=== PATIENT | female | born 1995 | race Caucasian/White ===

== ENCOUNTER 2020-08-26 08:55 | Outpatient (CLI) | payer MEDICAID ==
[2020-08-26 09:18] VITALS: BP 134/84
[2020-08-26 09:21] LABS: MICROSCOPIC INDICATED
[2020-08-26] MEDS ORDERED: NITR100C57 PO (09:58)
== END 2020-08-26 10:03 | disposition home or self-care (01) ==
LOC: LDOP 08:55
PROVIDERS: ATTEND Obstetrics & Gynecology
DX: O26.893 Other specified pregnancy related conditions, third trimester (principal); M54.9 Dorsalgia, unspecified; Z3A.38 38 weeks gestation of pregnancy
CPT/HCPCS: 59025; 81001; 87086

== ENCOUNTER 2020-09-04 06:09 | Inpatient (IN) | payer MEDICAID ==
[~2020-09-04] VITALS: Ht 160 cm; Wt 96.4 kg
[~2020-09-04 06:09] MED LIST: NITR100C57 PO
[2020-09-04] MEDS: LACTATED RINGERS 1,000 ML IV SCH (21:30)
[2020-09-04] MEDS ORDERED: ONDANSETRON 2MG/ML, 2ML IVPush PRN (22:00)
[2020-09-04] MEDS ORDERED: TERBUTALINE 1 MG/ML, 1ML IVPush PRN (22:00)
[2020-09-04] MEDS ORDERED: OXYTOCIN 30U/ 0.9% NaCL 500ML 500 ML IV PRN (22:00)
[2020-09-04] MEDS ORDERED: CALCIUM CARBONATE 500 MG TAB.CHEW PO PRN (22:00)
[2020-09-04] MEDS ORDERED: TERBUTALINE 1 MG/ML, 1ML SQ PRN (22:00)
[2020-09-04] MEDS ORDERED: MISOPROSTOL 25 MCG TABLET PO PRN (22:00)
[2020-09-04] MEDS ORDERED: FENTANYL PF 100 MCG/2ML IV PRN (22:00)
[2020-09-04] MEDS: D5%-LACTATED RINGERS 1,000 ML IV SCH (22:00)
[2020-09-04] MEDS ORDERED: OXYTOCIN 30U/ 0.9% NaCL 500ML 500 ML IV ONE (22:00)
[2020-09-04 22:14] LABS: BASOPHILS % (AUTO) 0 % (0-1); EOSINOPHILS % (AUTO) 2 % (1-7); LYMPHOCYTES % (AUTO) 21 % (22-44); MEAN CORPUSCULAR HEMOGLOBIN 29.6 pg (27.0-34.8); MEAN CORPUSCULAR HGB CONC 32.9 g/dL (32.4-35.8); MEAN PLATELET VOLUME 10.5 fL (7.4-10.4); MONOCYTES % (AUTO) 6 % (2-9); NEUTROPHILS % (AUTO) 71 % (42-75); PLATELET COUNT 256 x10^3/uL (130-400); RED BLOOD COUNT 3.89 x10^6/uL (3.82-5.3); RED CELL DISTRIBUTION WIDTH 15.7 % (9.6-15.2)
[2020-09-04 22:15] LABS: MD NO
[2020-09-05] MEDS ORDERED: LIDOCAINE 1%, 20ML ONE (02:01)
[2020-09-05] MEDS ORDERED: NEWBORN KIT ONE (02:01)
[2020-09-05] MEDS ORDERED: MISOPROSTOL 200 MCG TABLET ONE (02:01)
[2020-09-05] MEDS: LACTATED RINGERS 1,000 ML IV SCH ×5 (06:00→22:00)
[2020-09-05] MEDS: D5%-LACTATED RINGERS 1,000 ML IV SCH ×3 (06:00→22:00)
[2020-09-05] MEDS: FENTANYL PF 100 MCG/2ML IVPush PRN ×2 (09:31→10:35)
[2020-09-05] MEDS ORDERED: FENTANYL/BUPIV./NS/PF 250 ML EPIDCONT ONE (12:05)
[2020-09-05] MEDS: FENTANYL/BUPIV./NS/PF 250 ML EPIDCONT SCH (13:00)
[2020-09-05] MEDS ORDERED: NALOXONE 0.4 MG/ML, 1ML IVPush PRN (13:00)
[2020-09-05] MEDS ORDERED: EPHEDRINE 50 MG/ML, 1ML IVPush PRN (13:00)
[2020-09-05] MEDS ORDERED: LACTATED RINGERS 1,000 ML IVBOLUS PRN (13:00)
[2020-09-05 19:40] VITALS: BP 126/64
[2020-09-06] MEDS: LACTATED RINGERS 1,000 ML IV SCH ×6 (05:00→23:30)
[2020-09-06] MEDS: D5%-LACTATED RINGERS 1,000 ML IV SCH (06:00)
[2020-09-06] MEDS ORDERED: LIDOCAINE/MPF 2%-EPI 1:200K, 20 ML ONE ×2 (08:29→13:14)
[2020-09-06] MEDS: FENTANYL/BUPIV./NS/PF 250 ML EPIDCONT SCH (13:00)
[2020-09-06] MEDS ORDERED: SODIUM CITRATE/CITRIC ACID 15 ML UDC ONE (13:48)
[2020-09-06] MEDS ORDERED: METOCLOPRAMIDE 5 MG/ML, 2ML ONE (13:48)
[2020-09-06] MEDS ORDERED: DEXAMETHASONE 4 MG/ML, 1ML ONE (14:28)
[2020-09-06] MEDS ORDERED: ONDANSETRON 2MG/ML, 2ML ONE (14:28)
[2020-09-06] MEDS ORDERED: KETOROLAC 30 MG/1 ML ONE (14:28)
[2020-09-06] MEDS ORDERED: CEFAZOLIN 1,000 MG ONE (14:28)
[2020-09-06] MEDS ORDERED: OXYTOCIN 10 UNITS/ML, 1ML ONE (14:28)
[2020-09-06] MEDS ORDERED: WATER-INJECTION,STERILE 10 ML IV ONE (14:28)
[2020-09-06] MEDS ORDERED: PHENYLEPHRINE 10 MG/ML ONE (14:28)
[2020-09-06] MEDS ORDERED: morphine SULFATE/PF 0.5 MG/ML, 10ML ONE (14:30)
[2020-09-06] MEDS ORDERED: ONDANSETRON 2MG/ML, 2ML IV PRN (15:30)
[2020-09-06] MEDS ORDERED: MEPERIDINE/PF 50 MG/ML IM PRN (15:30)
[2020-09-06] MEDS ORDERED: IBUPROFEN 600 MG TABLET PO PRN (15:30)
[2020-09-06] MEDS ORDERED: MISOPROSTOL 200 MCG TABLET PR PRN (15:30)
[2020-09-06] MEDS ORDERED: MORPHINE SULFATE 4 MG/ML, 1ML IVPush PRN (15:30)
[2020-09-06] MEDS ORDERED: GLYCERIN ADULT SUPP PR PRN (15:30)
[2020-09-06] MEDS ORDERED: METOCLOPRAMIDE 5 MG/ML, 2ML IV PRN (15:30)
[2020-09-06] MEDS ORDERED: DIPH,PERTUSS(ACELL),TET VAC/PF NC IM-VACC PRN (15:30)
[2020-09-06] MEDS ORDERED: OXYcodone/APAP 5/325MG TABLET PO PRN (15:30)
[2020-09-06] MEDS ORDERED: KETOROLAC 30 MG/1 ML IV SCH (15:30)
[2020-09-06] MEDS ORDERED: RHOGAM FROM BLOOD BANK 1 NOTE EA IM/IV ONE (15:30)
[2020-09-06] MEDS ORDERED: MEPERIDINE/PF 25MG/0.5ML IM PRN (15:30)
[2020-09-06] MEDS ORDERED: TRANEXAMIC ACID 100 MG/ML, 10ML IV ONE (15:30)
[2020-09-06] MEDS: OXYTOCIN 30U/ 0.9% NaCL 500ML 500 ML IV SCH (15:30)
[2020-09-06] MEDS ORDERED: IBUPROFEN 800 MG TABLET PO PRN (15:30)
[2020-09-06] MEDS ORDERED: morphine SULFATE 10 MG/ML, 1ML IM PRN (15:30)
[2020-09-06] MEDS ORDERED: AZITHROMYCIN 500 MG in SODIUM CHLORIDE 0.9% 250 ML IV ONE (16:30)
[2020-09-06] MEDS ORDERED: SODIUM CITRATE/CITRIC ACID 30 ML UDC PO ONE ×2 (16:30)
[2020-09-06] MEDS ORDERED: LACTATED RINGERS 1,000 ML IVBOLUS ONE (16:30)
[2020-09-06] MEDS ORDERED: METOCLOPRAMIDE 5 MG/ML, 2ML IV ONE (16:30)
[2020-09-06 17:20] VITALS: BP 112/66
[2020-09-06] MEDS: OXYcodone/APAP 5/325MG TABLET PO PRN ×2 (17:30→23:29)
[2020-09-06 19:41] VITALS: BP 119/79
[2020-09-06] MEDS ORDERED: DIPHENHYDRAMINE 50 MG/ML, 1ML IV PRN (20:00)
[2020-09-06] MEDS ORDERED: ONDANSETRON 2MG/ML, 2ML IVPush PRN (20:00)
[2020-09-06] MEDS ORDERED: EPHEDRINE 50 MG/ML, 1ML IVPush PRN (20:00)
[2020-09-06] MEDS ORDERED: NALOXONE 0.4 MG/ML, 1ML IV PRN (20:00)
[2020-09-06] MEDS ORDERED: NO SEDATIVES, TRANQUILIZERS OR ANTIEMETICS XX SCH (20:00)
[2020-09-06] MEDS ORDERED: MORPHINE SULFATE 4 MG/ML, 1ML IV PRN (20:30)
[2020-09-06] MEDS: DOCUSATE 100 MG CAPSULE PO PRN (20:41)
[2020-09-06] MEDS: KETOROLAC 30 MG/1 ML IVPush SCH (20:41)
[2020-09-06 23:30] VITALS: BP 113/74
[2020-09-07] MEDS: OXYTOCIN 30U/ 0.9% NaCL 500ML 500 ML IV SCH ×2 (01:30→11:30)
[2020-09-07] MEDS: LACTATED RINGERS 1,000 ML IV SCH ×4 (01:30→15:30)
[2020-09-07] MEDS: KETOROLAC 30 MG/1 ML IVPush SCH ×3 (02:43→15:44)
[2020-09-07 03:16] LABS: MEAN CORPUSCULAR HEMOGLOBIN 29.6 pg (27.0-34.8); MEAN PLATELET VOLUME 10.7 fL (7.4-10.4); PLATELET COUNT 239 x10^3/uL (130-400); RED BLOOD COUNT 3.57 x10^6/uL (3.82-5.3); RED CELL DISTRIBUTION WIDTH 16.2 % (9.6-15.2)
[2020-09-07 03:50] LABS: MD YES
[2020-09-07 03:52] LABS: ANISOCYTOSIS 1+; BAND#(MANUAL) 1.23 x10^3/uL; BANDS%(MANUAL) 4 % (0-7); LYMPH#(MANUAL) 2.15 x10^3/uL (1-3.4); LYMPHS% (MANUAL) 7 % (22-44); MONOS#(MANUAL) 0.92 x10^3/uL (0.3-2.7); MONOS% (MANUAL) 3 % (2-9); SEGS% (MANUAL) 86 % (42-75)
[2020-09-07 03:53] LABS: <PLATELET ESTIMATE> ADEQUATE; LARGE PLATELETS 1+; OVALOCYTES 1+
[2020-09-07 04:45] VITALS: BP 110/73
[2020-09-07] MEDS: OXYcodone/APAP 5/325MG TABLET PO PRN ×4 (05:22→22:34)
[2020-09-07 07:15] VITALS: BP 107/70
[2020-09-07] MEDS: DOCUSATE 100 MG CAPSULE PO PRN ×2 (08:42→21:35)
[2020-09-07] MEDS: SIMETHICONE 80 MG CHEW TAB PO PRN (08:42)
[2020-09-07] MEDS: PRENATAL VIT/IRON/FA 1 EACH TABLET PO SCH (08:42)
[2020-09-07 12:30] VITALS: BP 115/79
[2020-09-07] MEDS ORDERED: IBUPROFEN 800 MG TABLET PO PRN (15:00)
[2020-09-07 20:00] VITALS: BP 122/83
[2020-09-07] MEDS: KETOROLAC 30 MG/1 ML IV SCH (21:35)
[2020-09-08] MEDS: OXYcodone/APAP 5/325MG TABLET PO PRN ×3 (03:42→22:50)
[2020-09-08] MEDS: KETOROLAC 30 MG/1 ML IV SCH ×2 (03:42→09:49)
[2020-09-08 09:00] VITALS: BP 116/78
[2020-09-08] MEDS: DOCUSATE 100 MG CAPSULE PO PRN ×2 (09:48→22:50)
[2020-09-08] MEDS: SIMETHICONE 80 MG CHEW TAB PO PRN (09:48)
[2020-09-08] MEDS: PRENATAL VIT/IRON/FA 1 EACH TABLET PO SCH (09:48)
[2020-09-08 20:25] VITALS: BP 120/84
[2020-09-08] MEDS: IBUPROFEN 600 MG TABLET PO PRN (22:49)
[2020-09-09] MEDS: OXYcodone/APAP 5/325MG TABLET PO PRN (06:32)
[2020-09-09] MEDS: IBUPROFEN 600 MG TABLET PO PRN (06:32)
[2020-09-09] MEDS ORDERED: OXYC1TAB14 PO (07:07)
[2020-09-09] MEDS ORDERED: DOCU-131 PO (07:07)
[2020-09-09] MEDS ORDERED: IBUP-1222 PO (07:07)
[2020-09-09 08:25] VITALS: BP 111/73
[2020-09-09] MEDS: PRENATAL VIT/IRON/FA 1 EACH TABLET PO SCH (10:21)
[2020-09-09] MEDS: DOCUSATE 100 MG CAPSULE PO PRN (10:21)
== END 2020-09-09 12:10 | disposition home or self-care (01) | DRG 788 ==
LOC: LDIP 21:02 → 2NW 09-06 17:07
PROVIDERS: ADMIT Obstetrics & Gynecology; ATTEND Obstetrics & Gynecology
PROC: 10D00Z1 Extraction of Products of Conception, Low, Open Approach (ICD-10-PCS; principal; 2020-09-06)
PROC: 10H07YZ Insertion of Other Device into Products of Conception, Via Natural or Artificial Opening (ICD-10-PCS; 2020-09-06)
DX: O64.0XX0 Obstructed labor due to incomplete rotation of fetal head, not applicable or unspecified (principal); O62.0 Primary inadequate contractions; Z20.822 Contact with and (suspected) exposure to COVID-19; O62.1 Secondary uterine inertia; Z37.0 Single live birth; Z3A.40 40 weeks gestation of pregnancy
CPT/HCPCS: 36415; 85025; 86592; 86850; 86900; 87635; G0378; J0456; J0690; J1100; J1885; J2274; J2405; J3010; J1200; J2370; J2590; J2765; J7050; J7120